=== PATIENT | male | born 1995 | race Caucasian/White ===

== ENCOUNTER 2019-09-17 06:54 | Emergency (ER) | payer BC ==
[~2019-09-17] VITALS: Ht 175.3 cm; Wt 95.3 kg
[2019-09-17 07:04] VITALS: BP_SYST 119
--- NOTE | 2019-09-17 07:15 | NUR ---
Patient to ER bed 04 to gown for evaluation. Side rails up.
--- NOTE | 2019-09-17 07:17 | NUR ---
Pt brought by self , A&Ox4, pt presents to ER with LAC on R thumb, pt cut finger with slicer, skin pink and warm, cap refill <3, VSS.
--- NOTE | 2019-09-17 07:26 | NUR ---
Dr Mcelroy at bedside examining patient
[2019-09-17] MEDS ORDERED: DIPH-TET-PERTUS Vaccine 0.5 ML VIAL (ADACEL) I.M. ONE (08:15)
--- NOTE | 2019-09-17 08:25 | NUR ---
Patient given written and verbal discharge instructions and verbalizes understanding. ER MD discussed with patient the results and treatment provided. Patient in stable condition. ID arm band removed. Rx of Bacrim given. Patient educated on pain management and to follow up with PMD. Pain Scale 2/10 tolerable for pt. Opportunity for questions provided and answered. Medication side effect fact sheet provided.
== END 2019-09-17 08:25 | disposition home or self-care (01) ==
LOC: SED 06:54
DX: S61.011A Laceration without foreign body of right thumb without damage to nail, initial encounter (principal); W26.8XXA Contact with other sharp object(s), not elsewhere classified, initial encounter; Y93.89 Activity, other specified; Y92.511 Restaurant or cafe as the place of occurrence of the external cause; Y99.8 Other external cause status; Z88.1 Allergy status to other antibiotic agents
CPT/HCPCS: 90715; 99283